=== PATIENT | male | born 1940 | race Caucasian/White ===

== ENCOUNTER → 2017-09-21 | Outpatient (CLI) | payer MEDICARE ==
--- NOTE | 2017-09-21 18:39 | MR ---
EXAMINATION TYPE: MR shoulder LT wo con DATE OF EXAM: 09/21/2017 COMPARISON: Outside left shoulder x-ray September 07, 2017 HISTORY: Left shoulder pain x 6 mos, fell off a ladder TECHNIQUE: Multiplanar, multisequence imaging of the left shoulder is performed without contrast. FINDINGS: Rotator Cuff: There is full-thickness retracted tear of supraspinatus retracted to level of the acrom ion roughly 5 cm seen best paracoronal image 9 series 301. Distal tendon is thickened at site of retr action and tear with surrounding edema. Infraspinatus tendon shows focal partial tear at articular surface measuring 4 mm transversely paraCo awilda image 13 and 8 mm AP diameter parasagittal image 7. Subscapularis tendon shows marked edema and thickening with surrounding fluid. The distal portion is not well identified. Rotator cuff muscle bulk is fairly well maintained. Acromioclavicular Joint: There is moderate to advanced joint space loss with mild to moderate spurrin g. There is loss of inferior fat plane. Distal acromion morphology is unremarkable. Glenohumeral Joint: There is large glenohumeral joint effusion.. There is joint space loss with corti vilma irregularity swelling inferior medial aspect of humeral head. Labrum: Superior labrum is markedly blunted at the biceps anchor, tear is suspected. Biceps Tendon: The long head of biceps is parched anteriorly within bicipital groove on axial image 5 . Bone marrow signal: No focal abnormal marrow signal is appreciated. Other: No additional significant abnormality is appreciated. IMPRESSION: 1. Massive full-thickness retracted tear of supraspinatus tendon. 2. Suspected full-thickness tear of the subscapularis tendon. There is displacement of long head of b iceps tendon. 3. Full-thickness tear superior labrum felt present. 4. Partial articular surface tear of infraspinatus tendon.
== END | disposition home or self-care (01) ==
LOC: RADMRIMAIN 17:34
PROVIDERS: ATTEND Orthopaedic Surgery
DX: M75.122 Complete rotator cuff tear or rupture of left shoulder, not specified as traumatic (principal); M67.814 Other specified disorders of tendon, left shoulder; S46.912A Strain of unspecified muscle, fascia and tendon at shoulder and upper arm level, left arm, initial encounter; S43.402A Unspecified sprain of left shoulder joint, initial encounter

== ENCOUNTER 2024-09-10 12:30 | Day surgery (SDC) | payer MEDICARE ==
[~2024-09-10 12:30] MED LIST: HYDROmorphone 0.5 MG/0.5 ML SYRINGE IVP PRN
[2024-09-10] MEDS: LACTATED RINGERS 1,000 ML IV SCH (13:19)
[2024-09-10] MEDS: ONDANSETRON 4 MG/2 ML VIAL IVP STA (13:21)
[2024-09-10] MEDS: DEXAMETHASONE SOD PHOSPHATE 4 MG/ML 1 ML VIAL IVP STA (13:21)
[2024-09-10] MEDS: IV FLUID CONTINUATION 1,000 ML IV ONE (13:29)
--- NOTE | 2024-09-10 14:21 | P.HPIHPCON ---
History of Present Illness H&P Date: 09/10/24 Chief Complaint: Bladder mass This is an 84 yo male with hx of gross hematuria. Underwent a cystoscopy at [place] [facility] by Dr. Bailey which showed evidence of a bladder mass. Discussed with him given that finding I do recommend proceeding to with TURBT given the risk of bleeding of these bladder tumors. He is aware of the risk which includes but not limited to bleeding, infection, bladder perforation. Patient was evaluated by cardiology and he was cleared for surgery Consent for Procedure: I have explained the operation/procedure to the patient, including the risks, benefits, side effects, alternative therapies (including not receiving the proposed treatment or service), the likelihood of the patient achieving his/her goals, and potential recuperation problems for the procedure/sedation/analgesia, as well as any blood products, if indicated. I also explained to the patient the risks, benefits and side effects of the alternatives, as well as the risks related to not receiving the proposed procedure, care, treatment, or services. Past Medical History Past Medical History: Atrial Fibrillation, Heart Failure, Eye Disorder, Hyperlipidemia, Hypertension, Renal Disease Additional Past Medical History / Comment(s): LOWER EXTREMITY EDEMA . BR JAMISON HISTORY. 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 40% kidney function History of Any Multi-Drug Resistant Organisms: None Reported Past Surgical History: Coronary Bypass/CABG Additional Past Surgical History / Comment(s): 04/22/[address] Lazara hdz, Past Anesthesia/Blood Transfusion Reactions: No Reported Reaction Smoking Status: Former smoker - Past Family History Mother Family Medical History: No Reported History Medications and Allergies Home Medications Medication Instructions Recorded Confirmed Type Amiodarone [Cordarone] 200 mg PO DAILY 05/04/23 09/10/24 History Apixaban [Eliquis] 5 mg PO BID 05/04/23 09/10/24 History Atorvastatin [Lipitor] 40 mg PO HS 05/04/23 09/10/24 History Latanoprost [Latanoprost 0.005%] 1 drop BOTH EYES DAILY 05/04/23 09/10/24 History Losartan Potassium [Cozaar] 12.5 mg PO QAM 05/04/23 09/10/24 History metOLazone [Zaroxolyn] 5 mg PO DAILY PRN 05/04/23 09/10/24 History Bumetanide [Bumex] 1 mg PO BID 09/06/24 09/10/24 History Fluticasone/Vilanterol [Breo 1 puff INHALATION DAILY 09/06/24 09/10/24 History Ellipta 100-25 Mcg Inhalr] Metoprolol Succinate [Metoprolol 12.5 mg PO HS 09/06/24 09/10/24 History Succinate ER] Potassium Chloride 20 meq PO DAILY 09/06/24 09/10/24 History Tamsulosin HCl [Flomax] 0.4 mg PO DAILY 09/06/24 09/10/24 History Vit C/E/Zn/Coppr/Lutein/Zeaxan 2 tab PO BID 09/06/24 09/10/24 History [Preservision Areds 2 Softgel] Allergies Allergy/AdvReac Type Severity Reaction Status Date / Time No Known Allergies Allergy Verified 09/10/24 12:49 Surgical - Exam Vital Signs Temp Pulse Resp BP Pulse Ox 98 F 61 18 189/78 97 09/10/24 13:08 09/10/24 13:08 09/10/24 13:08 09/10/24 13:08 09/10/24 13:08 - General no distress, no pain - Eyes normal ocular movement, no pale - ENT normal nares, normal mucosa - Respiratory normal expansion, normal respiratory effort - Abdomen Abdomen: soft, non tender, no distended - Psychiatric oriented to time, oriented to person, oriented to place Assessment and Plan Assessment: OR for TURBT
[2024-09-10] MEDS ORDERED: LIDOCAINE 1% INJ 10MG/ML (20 ML MDV) ONE (14:54)
[2024-09-10] MEDS ORDERED: PROPOFOL 10 MG/ML 20 ML VIAL IV ONE (14:54)
[2024-09-10] MEDS ORDERED: fentaNYL (PF) 50 MCG/ML 2 ML AMP ONE (14:54)
[2024-09-10] MEDS: ceFAZolin 3 GM in SODIUM CHLORIDE 0.9% 100 ML IVPB PRN (15:18)
--- NOTE | 2024-09-10 15:37 | P.OP ---
Date of Procedure: 09/10/24 Preoperative Diagnosis: bladder mass Postoperative Diagnosis: same Procedure(s) Performed: TURBT (Medium) Anesthesia: GETA Surgeon: Sammy Austin Estimated Blood Loss (ml): 10 Pathology: other (bladder tumor) Condition: stable Disposition: PACU Indications for Procedure: This is an 84 yo male with hx of gross hematuria. Underwent a cystoscopy at [place] [facility] by Dr. Bailey which showed evidence of a bladder mass. Discussed with him given that finding I do recommend proceeding to with TURBT given the risk of bleeding of these bladder tumors. He is aware of the risk which includes but not limited to bleeding, infection, bladder perforation. Patient was evaluated by cardiology and he was cleared for surgery Operative Findings: two small papillary tumor along left lateral wall Description of Procedure: Patient was brought to the operating room, general anesthesia was induced. He was prepped and draped in sterile fashion placed in dorsolithotomy position. Resectoscope fitted with a 25 Turkmen sheath was inserted per urethra, cystoscopy was performed which showed 2 papillary lesions along the left lateral wall of the bladder. The prostate was enlarged and occlusive. Using the bipolar rese ctoscope both tumors were resected down, of note the lesions were in close proximity to the left ureteral orifice but did not involve the left ureteral orifice, and the ureter orifice was not resected. Area of bleeding was controlled with cautery, and edges of the tumor was also cauterized. The tumor was irrigated out. Repeat cystoscopy showed no evidence of bleeding or any additional lesions, there was no evidence of bladder perforation. Total area of resection was 2-1/2 cm. At this time the resectoscope was withdrawn and an 18 Turkmen Guzman was placed with a return of clear urine. Patient tolerated procedure was taken to recovery in stable condition
[2024-09-10 15:44] VITALS: TEMP 97.2
[2024-09-10 16:15] VITALS: PULSE 64
[2024-09-10 16:29] VITALS: BP 176/74; RESP 17
== END 2024-09-10 16:45 | disposition home or self-care (01) ==
LOC: OR 12:30
PROVIDERS: ATTEND Urology
DX: D30.3 Benign neoplasm of bladder (principal); D49.4 Neoplasm of unspecified behavior of bladder; I48.91 Unspecified atrial fibrillation; I50.9 Heart failure, unspecified; I11.0 Hypertensive heart disease with heart failure; E78.5 Hyperlipidemia, unspecified; Z79.01 Long term (current) use of anticoagulants; Z87.891 Personal history of nicotine dependence; Z95.1 Presence of aortocoronary bypass graft
CPT/HCPCS: 52235; J1100; J0690; J2405; J2003; J3010; J2704; 88307; 88342

== ENCOUNTER → 2024-12-25 | Outpatient (CLI) | payer MEDICARE ==
--- NOTE | 2024-12-26 08:15 | CA ---
Transthoracic Echo Report Name: Cesar Amezquita Age: 84 Gender: M : 1940 Exam Date: 12/25/2024 15:41 Exam Location: [facility] Ht (in): 72 Wt (lb): 287 Ordering Physician: Bruce Barber MD Attending/Referring Phys: [employer] Vehicle [employer] Driver Kirti Lilly RDCS Procedure CPT: Indications: Z01.818 Chemo Cardiac Hx: Hx of CABG Technical Quality: Technically difficult study Contrast 1: Definity Total Dose (mL): 2 Contrast 2: Total Dose (mL): MEASUREMENTS (Male / Female) Normal Values 2D ECHO LV Diastolic Diameter PLAX 4.6 cm 4.2 - 5.9 / 3.9 - 5.3 cm LV Systolic Diameter PLAX 3.5 cm IVS Diastolic Thickness 1.6 cm 0.6 - 1.0 / 0.6 - 0.9 cm LVPW Diastolic Thickness 1.3 cm 0.6 - 1.0 / 0.6 - 0.9 cm LV Relative Wall Thickness 0.6 RV Internal Dim ED PLAX 2.9 cm LA Systolic Diameter LX 3.9 cm 3.0 - 4.0 / 2.7 - 3.8 cm LA Volume 88.6 cm??? 18 - 58 / 22 - 52 cm??? LA Volume Index 33.8 cm???/m??? 16 - 28 cm???/m??? M-MODE Aortic Root Diameter MM 3.5 cm AV Cusp Separation MM 1.9 cm DOPPLER AV Peak Velocity 99.1 cm/s AV Peak Gradient 3.9 mmHg MV Area PHT 2.6 cm??? Mitral E Point Velocity 68.7 cm/s Mitral A Point Velocity 85.3 cm/s Mitral E to A Ratio 0.8 MV Deceleration Time 293.8 ms TR Peak Velocity 233.3 cm/s TR Peak Gradient 21.8 mmHg Right Ventricular Systolic Press 25.2 mmHg FINDINGS Left Ventricle Left ventricular ejection fraction is estimated at 50 %. Left ventricular cavity size normal. Moderately increased septal wall thickness. Not able to obtain longitudinal strain. There is hypokinesia of the inferior basal and inferoseptal portion noted Right Ventricle Normal right ventricular size. Right ventricular systolic pressure within normal limits. Atypical septal motion noted with history of prior bypass surgery Right Atrium Right atrium not well visualized. Left Atrium Mildly increased left atrial volume. Mildly increased left atrial area. No left atrial thrombus or mass present. Mitral Valve Structurally normal mitral valve. No evidence for mitral valve prolapse. No mitral stenosis. Trace mitral regurgitation. Aortic Valve Trileaflet aortic valve. Thickened aortic valve without stenosis. Tricuspid Valve Structurally normal tricuspid valve. Mild tricuspid regurgitation. Pulmonic Valve Pulmonic valve not well visualized. Trace pulmonic regurgitation. Pericardium No pericardial effusion. Aorta Normal size aortic root and proximal ascending aorta. CONCLUSIONS Normal LV size mild concentric LVH fair systolic function with inferior basal septal hypokinesia. Mildly enlarged left atrium. Minimal mitral and tricuspid regurgitation. No pulmonary hypertension no pericardial effusion Previewed by: Dr. Brooklyn Bee MD (Electronically Signed) Final Date: 26 Dec 2024 08:14
== END | disposition home or self-care (01) ==
LOC: RADECHMAIN 15:36
PROVIDERS: ATTEND Internal Medicine
DX: Z01.818 Encounter for other preprocedural examination (principal); R80.3 Bence Jones proteinuria; I10 Essential (primary) hypertension; D47.2 Monoclonal gammopathy; J43.9 Emphysema, unspecified; I50.9 Heart failure, unspecified; I51.7 Cardiomegaly
CPT/HCPCS: 93306

== ENCOUNTER → 2025-02-01 | Outpatient (CLI) | payer MEDICARE ==
--- NOTE | 2025-02-01 19:41 | MR ---
INDICATION: Patient age:Male; 85 years old; Reason for study: M50.30 DEGEN DISK DISEASE; PHH. COMPARISON: Cervical spine radiograph 01/09/2025. TECHNIQUE: Multi planar, multi sequence imaging was performed of the cervical spine. No Gadolinium wa s given. FINDINGS: Alignment: The cervical vertebral bodies have preserved heights. Alignment is within normal limits gi victoria patient positioning. Bones: Bone signal is within normal limits. Multilevel anterior osteophytosis of the lower cervical spine. No abnormal STIR signal. Cord: The spinal cord is unremarkable with regards to their signal intensity and morphology. Discs: Multilevel disc desiccation is present. C2-C3: Broad-based disc bulge with mild effacement of the ventral thecal sac. There is close approxim ation of the ventral spinal cord. Results in minimal central canal stenosis. Uncovertebral joint hyp ertrophy with left facet arthropathy. The right neural foramen is patent. Moderate left neural forami nal stenosis. C3-C4: Eccentric right disc bulge extending into the foraminal zone with uncovertebral joint hypertro phy and bilateral facet arthropathy. There is effacement of the ventral thecal sac with abutment of t he ventral spinal cord with some mild mass effect. Moderate central canal stenosis. Mild to moderate left and moderate right neural foraminal stenosis. C4-C5: Broad-based disc bulge with effacement of the ventral thecal sac and abutment of the ventral s otto cord without significant mass effect. Results in mild central canal stenosis. Uncovertebral gwendolyn int hypertrophy. Bilateral facet arthropathy. Mild bilateral neuroforaminal stenosis. C5-C6: Broad-based disc bulge with effacement of the ventral thecal sac and abutment of the ventral s otto cord. Results in moderate central canal stenosis. Uncovertebral joint hypertrophy with moderat e to severe bilateral neural foraminal stenosis. C6-C7: Broad-based disc bulge with effacement of the ventral thecal sac and abutment of the ventral s otto cord. Results in moderate central canal stenosis. Uncovertebral joint hypertrophy with severe bilateral neural foraminal stenosis. C7-T1: No significant disc pathology. The spinal canal is patent. Uncovertebral joint hypertrophy. B ilateral facet arthropathy. Mild right and severe left neural foraminal stenosis. Other: None. 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 Mode rate spinal canal stenosis at C3-C4, C5-C6 and C6-C7. [facility] Driver, , 02/01/2025 7:39 PM
== END | disposition home or self-care (01) ==
LOC: RADMRIMAIN 15:30
PROVIDERS: ATTEND Family Medicine
DX: M48.02 Spinal stenosis, cervical region (principal); M50.323 Other cervical disc degeneration at C6-C7 level
CPT/HCPCS: 72141